=== PATIENT | female | born 1935 | race Hispanic/Latino ===

== ENCOUNTER 2016-11-18 11:36 | Emergency (ER) | payer MEDICARE, BC ==
[2016-11-18 11:54] VITALS: BMI 32.5
--- NOTE | 2016-11-18 12:13 | ED PDOC ---
Arrival/HPI - General Chief Complaint: Lower Extremity Problem/Injury Time Seen by Provider: 11/18/16 11:57 Historian: Patient - History of Present Illness Narrative History of Present Illness (Text): 11/18/16 12:10 A 81 year old female, whose past medical history includes DVT, presents to the emergency department complaining of left lower extremity pain for 1 week. Patient states the pain is worse when ambulating. Patient denies any fall, trauma, injury, fever, chills, nausea, vomiting, diarrhea, abdominal pain, chest pain, shortness of breath or any other complaints. PMD: Dr. Cervantes Time/Duration: 1 week Symptom Course: Unchanged Quality: Other Context: Home Past Medical History - Provider Review Nursing Documentation Reviewed: Yes - Infectious Disease Hx of Infectious Diseases: None - Tetanus Immunization Tetanus Immunization: Unknown - Reproductive Menopause: Yes - Cardiac Hx Hypertension: Yes - Pulmonary Hx Respiratory Disorders: No - Neurological Hx Paralysis: No - HEENT Hx HEENT Disorder: No - Renal Hx Renal Disorder: No - Endocrine/Metabolic Hx Endocrine Disorders: No - Hematological/Oncological Hx Blood Transfusions: No Hx Blood Transfusion Reaction: No - Integumentary Hx Dermatological Disorder: Yes Other/Comment: has hx of removal of moles from legs - Musculoskeletal/Rheumatological Hx Musculoskeletal Disorders: Yes Other/Comment: blood clot to L leg - Gastrointestinal Hx Gastrointestinal Disorders: (diverticulitis hx) - Genitourinary/Gynecological Hx Reproductive Disorders: No - Psychiatric Hx Physical Abuse: No Hx Substance Use: No - Surgical History Other/Comment: tonsilectomy at age 4 - Anesthesia Hx Anesthesia Reactions: No Hx Malignant Hyperthermia: No - Suicidal Assessment Feels Threatened In Home Enviroment: No Family/Social History - Physician Review Nursing Documentation Reviewed: Yes Family/Social History: Blood Clots (mother) Smoking Status: Never Smoked Hx Alcohol Use: No Hx Substance Use: No Hx Substance Use Treatment: No Allergies/Home Meds Allergies/Adverse Reactions: Allergies erythromycin base Allergy (Intermediate, Verified 09/28/15 13:10) VOMITING Home Medications: Home Meds Medication Instructions Recorded Confirmed Atorvastatin [Lipitor] 20 mg PO HS 09/28/15 11/18/16 Valsartan/Hydrochlorothiazide 1 tab PO QAM 09/28/15 11/18/16 [Valsartan and Hydrochlorothiazide 12.5 mg-160] Verapamil HCl [Verapamil HCl] 240 mg PO HS 09/28/15 11/18/16 Review of Systems - Physician Review All systems were reviewed & negative as marked: Yes - Review of Systems Constitutional: absent: Fevers, Night Sweats Respiratory: absent: SOB Cardiovascular: absent: Chest Pain Gastrointestinal: absent: Abdominal Pain, Diarrhea, Nausea, Vomiting Musculoskeletal: Other (left lower extremity pain) Physical Exam Vital Signs Reviewed: Yes Vital Signs Temp Pulse Resp BP Pulse Ox 11/18/16 13:50 98 F 79 18 134/74 97 11/18/16 12:03 98.1 F 82 16 141/78 95 Temperature: Afebrile Blood Pressure: Normal Pulse: Regular Respiratory Rate: Normal Appearance: Positive for: Well-Appearing, Non-Toxic, Comfortable Pain Distress: None Mental Status: Positive for: Alert and Oriented X 3 - Systems Exam Head: Present: Atraumatic, Normocephalic Pupils: Present: PERRL Extroacular Muscles: Present: EOMI Conjunctiva: Present: Normal Mouth: Present: Moist Mucous Membranes Neck: Present: Normal Range of Motion Respiratory/Chest: Present: Clear to Auscultation, Good Air Exchange. No: Respiratory Distress, Accessory Muscle Use Cardiovascular: Present: Regular Rate and Rhythm, Normal S1, S2. No: Murmurs Abdomen: Present: Normal Bowel Sounds. No: Tenderness, Distention, Peritoneal Signs Back: Present: Normal Inspection Upper Extremity: Present: Normal Inspection. No: Cyanosis, Edema Lower Extremity: Present: Normal Inspection, NORMAL PULSES, Normal ROM, Neurovascularly Intact. No: Edema, CALF TENDERNESS, Tenderness, Swelling, Erythema, Deformity, Temperature Abnormalties Neurological: Present: GCS=15, CN II-XII Intact, Speech Normal Skin: Present: Warm, Dry, Normal Color. No: Rashes Psychiatric: Present: Alert, Oriented x 3, Normal Insight, Normal Concentration Medical Decision Making ED Course and Treatment: 11/18/16 12:10 Impression: A 81 year old female with left lower extremity pain. Patient has a history of DVT. Plan: -- EKG -- Duplex lower extremity ultrasound -- Left ankle xray -- Left tibia fibula xray -- Labs -- Reassess and disposition Progress Notes: EKG shows NSR at 78 BPM with normal axis, normal intervals. Interpreted by me. Report Date : 11/18/2016 13:19:49 PROCEDURE: Radiographs of the left tibia and fibula. Dictator : Zeeshan Antunez MD IMPRESSION: Unremarkable radiographs of the left tibia and fibula. Report Date : 11/18/2016 13:20:48 PROCEDURE: Left Ankle Radiographs. Dictator : Zeeshan Antunez MD IMPRESSION: Normal left ankle radiographs. - Lab Interpretations Lab Results: 11/18/16 12:22 11/18/16 12:22 Lab Results 11/18/16 12:22: Sodium 141, Potassium 3.5 L, Chloride 103, Carbon Dioxide 27, Anion Gap 15, BUN 13, Creatinine 0.6, Est GFR ( Amer) > 60, Est GFR (Non- Af Amer) > 60, Random Glucose 94, Calcium 9.8, Total Bilirubin 1.0, AST 23, ALT 21, Alkaline Phosphatase 91, Total Protein 7.9, Albumin 4.5, Globulin 3.4, Albumin/Globulin Ratio 1.3 11/18/16 12:22: PT 10.7, INR 0.99, APTT 26.8 11/18/16 12:22: WBC 8.2 D, RBC 4.19, Hgb 13.0, Hct 38.6, MCV 92.1, MCH 31.0, MCHC 33.7, RDW 13.7, Plt Count 164, MPV 10.3, Gran % 60.4, Lymph % (Auto) 30.4, [place] % (Auto) 7.9 H, Eos % (Auto) 1.1 L, Baso % (Auto) 0.2, Gran # 4.96, Lymph # 2.5, Daggett # 0.7 H, Eos # 0.1, Baso # 0.02 I have reviewed the lab results: Yes - RAD Interpretation Radiology Orders: 11/18/16 12:10 ANKLE LEFT 3 VIEWS ROUTINE [RAD] Stat TIBIA FIBULA LEFT [RAD] Stat DUPLEX LOWER EXTRM VEIN LEFT [US] Stat - Scribe Statement The provider has reviewed the documentation as recorded by the Scribe Disposition/Present on Arrival - Present on Arrival Any Indicators Present on Arrival: No History of DVT/PE: No History of Uncontrolled Diabetes: No Urinary Catheter: No History of Decub. Ulcer: No History Surgical Site Infection Following: None - Disposition Have Diagnosis and Disposition been Completed?: Yes Diagnosis: Leg pain Disposition: HOME/ ROUTINE Disposition Time: 13:35 Condition: GOOD Discharge Instructions (ExitCare): Leg Pain (ED) Additional Instructions: Thank you for letting us take care of you today. Your provider was Dr. Felipe. You were treated for leg pain. The emergency medical care you received today was directed at your acute symptoms. If you were prescribed any medication, please fill it and take as directed. It may take several days for your symptoms to resolve. Return to the Emergency Department if your symptoms worsen, do not improve, or if you have any other problems. Please contact your doctor or call one of the physicians/clinics you have been referred to that are listed on the Patient Visit Information form that is included in your discharge packet. Bring any paperwork you were given at discharge with you along with any medications you are taking to your follow up visit. Our treatment cannot replace ongoing medical care by a primary care provider (PCP) outside of the emergency department. Thank you for allowing the [facility] team to be part of your care today. Follow up with Dr. Cervantes for futher evaluation and management. Prescriptions: Gabapentin [Neurontin] 100 mg PO DAILY #5 capsule Referrals: Eagle Cervantes MD [Primary Care Provider] - Follow up with primary
[2016-11-18 12:45] LABS: BASO # 0.02 K/mm3 (0.0-2.0); BASO % 0.2 % (0.0-3.0); EOS # 0.1 (0.0-0.7); EOS % 1.1 % (1.5-5.0); GRAN # 4.96 (1.4-6.5); GRAN % 60.4 % (50.0-68.0); LYMPH # 2.5 (1.2-3.4); LYMPH % 30.4 % (22.0-35.0); MEAN CELL VOLUME 92.1 fL (80.0-105.0); MEAN CORPUSCULAR HGB CONC 33.7 g/dl (31.0-37.0); MEAN PLATELET VOLUME 10.3 fl (7.0-11.0); MONO # 0.7 (0.1-0.6); MONO % 7.9 % (1.0-6.0); PLATELET COUNT 164 10^3/uL (120.0-450.0); RBC 4.19 10^6/uL (3.5-6.1); RED CELL DISTRIBUTION WIDTH 13.7 % (11.5-14.5); WHITE BLOOD COUNT 8.2 10^3/ul (4.5-11.0)
[2016-11-18 12:54] LABS: ALB/GLOB RATIO 1.3 (1.1-1.8); ALBUMIN 4.5 g/dL (3.0-4.8); ALT/SGPT 21 U/L (7-56); AST/SGOT 23 U/L (15-39); BLOOD UREA NITROGEN 13 mg/dL (7-21); CALCIUM 9.8 mg/dL (8.4-10.5); GFR AFRICAN-AMERICAN > 60; GFR NON-AFRICAN AMERICAN > 60; INR 0.99 (0.93-1.08); PARTIAL THROMBOPLASTIN TIME 26.8 Seconds (23.7-30.8); PROTHROMBIN TIME 10.7 Seconds (9.9-11.8)
--- NOTE | 2016-11-18 13:21 | RAD ---
PROCEDURE: Radiographs of the left tibia and fibula. HISTORY: r/o fx COMPARISON: None available. TECHNIQUE: Frontal and lateral views obtained. FINDINGS: BONES: No fracture or destructive lesion. JOINT SPACES: Unremarkable. OTHER FINDINGS: None. IMPRESSION: Unremarkable radiographs of the left tibia and fibula.
--- NOTE | 2016-11-18 13:22 | RAD ---
PROCEDURE: Left Ankle Radiographs. HISTORY: left ankle pain swelling COMPARISON: None FINDINGS: BONES: Normal. No fracture. JOINTS: Normal. No osteoarthritis. Ankle mortise maintained. Talar dome intact SOFT TISSUES: Normal. OTHER FINDINGS: None. IMPRESSION: Normal left ankle radiographs.
[2016-11-18 13:52] VITALS: BP 134/74; PULSE 79; RESP 18; TEMP 98; O2SAT 97
--- NOTE | 2016-11-18 16:47 | US ---
PROCEDURE: Left lower extremity venous US HISTORY: Leg pain and swelling. Evaluate for DVT. PHYSICIAN(S): Jose Carmen MD. TECHNIQUE: Duplex sonography and color-flow Doppler with graded compression were used to evaluate the deep venous system of the left lower extremity. FINDINGS: The visualized deep venous system of the left lower extremity is sonographically normal and compressible. Normal wave forms and augmentation are seen. There is no sonographic evidence for deep venous thrombosis in the visualized segments of the left lower extremity. IMPRESSION: 1. No sonographic evidence for deep venous thrombosis in the visualized segments of the left lower extremity.
--- NOTE | 2016-11-18 20:49 | CARD ---
APPROVED REPORT EKG Measurement Heart [id number] <Conclusion> Normal sinus rhythm Voltage criteria for left ventricular hypertrophy Abnormal ECG
== END 2016-11-18 13:47 | disposition home or self-care (01) ==
LOC: ED 11:36
DX: M79.605 Pain in left leg (principal); I10 Essential (primary) hypertension; Z86.718 Personal history of other venous thrombosis and embolism